=== PATIENT | female | born 1990 | race African-American/Black ===

== ENCOUNTER 2020-05-06 22:56 | Emergency (ER) | payer OTHER ==
[~2020-05-06] VITALS: Ht 162.6 cm; Wt 65.8 kg
== END 2020-05-07 09:22 | disposition home or self-care (01) ==
LOC: ER 22:56
DX: K29.70 Gastritis, unspecified, without bleeding (principal); Z03.818 Encounter for observation for suspected exposure to other biological agents ruled out; R10.13 Epigastric pain; R11.11 Vomiting without nausea